=== PATIENT | male | born 1955 | race Caucasian/White ===

== ENCOUNTER 2021-06-01 04:22 | Outpatient (CLI) | payer OTHER, SELFPAY ==
[2021-06-01 08:41] LABS: COMMENT (LAB VIEW ONLY) 129.59 mg/dL; Microalb ug/mg Crea 5.6 ug/mg Cr
[2021-06-01 08:42] LABS: Anion Gap 10.2 mmol/L (3-11); BUN 27 mg/dL (7-18); CO2 28.8 mmol/L (21.0-32.0); Calcium 9.4 mg/dL (8.5-10.1); Calculated LDL 101 mg/dL (<100); Chloride 101 mmol/L (98-107); Cholesterol 176 mg/dL (<200); Glucose 140 mg/dL (74-106); HDL Cholesterol 44 mg/dL (40-60); Potassium 3.7 mmol/L (3.5-5.1); Sodium 140 mmol/L (136-145); Triglyceride 156 mg/dL (<150)
== END 2021-06-01 04:23 | disposition home or self-care (01) ==
LOC: LBO 04:22
PROVIDERS: PCP Internal Medicine; Visit Provider Internal Medicine
DX: E11.9 Type 2 diabetes mellitus without complications (principal); I10 Essential (primary) hypertension; E78.00 Pure hypercholesterolemia, unspecified
CPT/HCPCS: 36415; 80048; 80061; 82043; 82570

== ENCOUNTER 2022-03-11 10:07 | Outpatient (REF) | payer OTHER, SELFPAY ==
[2022-03-13 15:09] LABS: COVID-19 RT-PCR UVMMC Result Negative (Negative)
[2022-03-13 15:25] LABS: Influenza A RNA Result Negative (Negative); Influenza B RNA Result Negative (Negative); RSV RNA Result Negative (Negative)
== END 2022-03-11 10:08 | disposition home or self-care (01) ==
LOC: LBN 10:07
PROVIDERS: PCP Nurse Practitioner Adult Health; Visit Provider Nurse Practitioner Family
DX: R05.9 Cough, unspecified (principal); Z20.822 Contact with and (suspected) exposure to COVID-19
CPT/HCPCS: 87631; U0003

== ENCOUNTER 2022-06-04 02:14 | Outpatient (CLI) | payer OTHER, SELFPAY ==
[2022-06-04 07:42] LABS: Hemoglobin A1C 6.6 % (<5.7)
[2022-06-04 07:44] LABS: Anion Gap 8.5 mmol/L (3-11); BUN 26 mg/dL (7-18); CO2 31.5 mmol/L (21.0-32.0); CREATININE 0.9 mg/dL (0.70-1.30); Calcium 9.9 mg/dL (8.5-10.1); Calculated LDL 105 mg/dL (<100); Chloride 99 mmol/L (98-107); Cholesterol 197 mg/dL (<200); Estimated GFR 94.78 (mL/min/1.73m2); Glucose 140 mg/dL (74-106); HDL Cholesterol 48 mg/dL (40-60); Potassium 3.5 mmol/L (3.5-5.1); Sodium 139 mmol/L (136-145); Triglyceride 222 mg/dL (<150)
[2022-06-07 10:42] LABS: Lab Add On Test DONE
[2022-06-07 11:22] LABS: Vitamin D 25 Total 25.1 ng/mL (30-100)
== END 2022-06-04 02:15 | disposition home or self-care (01) ==
LOC: LBO 02:15
PROVIDERS: PCP Nurse Practitioner Adult Health; Visit Provider Nurse Practitioner Adult Health
DX: E11.9 Type 2 diabetes mellitus without complications (principal); E78.5 Hyperlipidemia, unspecified; I10 Essential (primary) hypertension; K21.9 Gastro-esophageal reflux disease without esophagitis; M54.42 Lumbago with sciatica, left side
CPT/HCPCS: 36415; 80048; 80061; 82306; 83036

== ENCOUNTER 2022-07-06 18:19 | Outpatient (REF) | payer OTHER, SELFPAY ==
[2022-07-06 19:03] LABS: Influenza A PCR Negative (Negative); Influenza B PCR Negative (Negative); RSV PCR Negative (Negative)
[2022-07-06 19:18] LABS: Source Nasopharynx
[2022-07-06 19:21] LABS: COVID-19 PCR Positive (Negative)
== END 2022-07-06 18:20 | disposition home or self-care (01) ==
LOC: LBN 18:19
PROVIDERS: PCP Nurse Practitioner Adult Health; Visit Provider Family Medicine
DX: U07.1 COVID-19 (principal)
CPT/HCPCS: 87637

== ENCOUNTER 2022-12-03 02:03 | Outpatient (CLI) | payer OTHER, SELFPAY ==
[2022-12-03 08:18] LABS: Hemoglobin A1C 6.7 % (<5.7)
[2022-12-03 08:31] LABS: Anion Gap 5.3 mmol/L (3-11); BUN 24 mg/dL (7-18); CO2 31.7 mmol/L (21.0-32.0); CREATININE 0.9 mg/dL (0.70-1.30); Calcium 9.5 mg/dL (8.5-10.1); Calculated LDL 75 mg/dL (<100); Chloride 100 mmol/L (98-107); Cholesterol 155 mg/dL (<200); Estimated GFR 94.19 (mL/min/1.73m2); Glucose 130 mg/dL (74-106); HDL Cholesterol 47 mg/dL (40-60); Potassium 4.1 mmol/L (3.5-5.1); Sodium 137 mmol/L (136-145); Triglyceride 167 mg/dL (<150)
[2022-12-03 08:33] LABS: COMMENT (LAB VIEW ONLY) 144.16 mg/dL; Microalb ug/mg Crea 5.5 ug/mg Cr
== END 2022-12-03 02:04 | disposition home or self-care (01) ==
LOC: LBO 02:03
PROVIDERS: PCP Nurse Practitioner Adult Health; Visit Provider Nurse Practitioner Adult Health
DX: E11.9 Type 2 diabetes mellitus without complications (principal); I10 Essential (primary) hypertension; E78.2 Mixed hyperlipidemia
CPT/HCPCS: 36415; 80048; 80061; 82043; 82570; 83036

== ENCOUNTER 2023-12-05 01:51 | Outpatient (CLI) | payer MEDICARE, SELFPAY ==
[2023-12-05 08:26] LABS: COMMENT (LAB VIEW ONLY) 151.04 mg/dL; Microalb ug/mg Crea 4.8 ug/mg Cr
[2023-12-05 08:27] LABS: BUN 26 mg/dL (7-18); CREATININE 0.9 mg/dL (0.70-1.30); Calcium 9.5 mg/dL (8.5-10.1); Calculated LDL 67 mg/dL (<100); Chloride 102 mmol/L (98-107); Cholesterol 138 mg/dL (<200); Estimated GFR 93.61 (mL/min/1.73m2); Glucose 118 mg/dL (74-106); HDL Cholesterol 46 mg/dL (40-60); Potassium 3.8 mmol/L (3.5-5.1); Sodium 139 mmol/L (136-145); Triglyceride 128 mg/dL (<150)
[2023-12-05 08:52] LABS: Hemoglobin A1C 6.7 % (<5.7)
== END 2023-12-05 01:52 | disposition home or self-care (01) ==
LOC: LBO 01:51
PROVIDERS: Absent Provider Nurse Practitioner Adult Health; PCP Nurse Practitioner Adult Health; Referring Provider Nurse Practitioner Adult Health; Visit Provider Nurse Practitioner Adult Health
DX: E11.9 Type 2 diabetes mellitus without complications (principal); I10 Essential (primary) hypertension; E78.2 Mixed hyperlipidemia
CPT/HCPCS: 36415; 80048; 80061; 82043; 82570; 83036

== ENCOUNTER 2024-05-31 02:57 | Outpatient (CLI) | payer MEDICARE, SELFPAY ==
[2024-05-31 08:16] LABS: Hemoglobin A1C 6.2 % (<5.7)
[2024-05-31 08:40] LABS: Vitamin D 25 Total 53.5 ng/mL (30-100)
[2024-06-02 13:39] LABS: Apolipoprotein B, S 84 mg/dL
== END 2024-05-31 02:58 | disposition home or self-care (01) ==
PROVIDERS: PCP Nurse Practitioner Adult Health; Referring Provider Nurse Practitioner Adult Health; Visit Provider Nurse Practitioner Adult Health
DX: E55.9 Vitamin D deficiency, unspecified (principal); E11.9 Type 2 diabetes mellitus without complications; E78.2 Mixed hyperlipidemia
CPT/HCPCS: 36415; 82172; 82306; 83036